=== PATIENT | male | born 1970 | race Caucasian/White ===

== ENCOUNTER 2023-02-15 08:51 | Outpatient (CLI) | payer MEDICARE, MEDICAID, SELFPAY ==
--- NOTE | 2023-02-15 11:30 | NEURO_ITS ---
Impression: # Complains of left upper extremity pain and nocturnal paresthesia of left hand. # Left moderate Carpal Tunnel Syndrome. # No ulnar neuropathy. # Normal needle/EMG. # Clinical correlation recommended. Nerve Conduction Studies Anti Sensory Summary Table Stim Site NR Peak (ms) P-T Amp (?V) Site1 Site2 Delta-P (ms) Dist (cm) Joseph (m/s) Left Median Anti Sensory (2-3nd Digit) Wrist 4.8 21.7 Wrist 2-3nd Digit 4.8 14.0 29 Wrist 4.4 17.0 Wrist 2-3nd Digit 4.8 14.0 29 Right Median Anti Sensory (2-3nd Digit) Wrist 3.1 47.8 Wrist 2-3nd Digit 3.1 14.0 45 Wrist 3.3 44.9 Wrist 2-3nd Digit 3.1 14.0 45 Left Radial Anti Sensory (Base 1st Digit) Wrist 2.2 21.9 Wrist Base 1st Digit 2.2 0.0 Right Radial Anti Sensory (Base 1st Digit) Wrist 2.3 29.4 Wrist Base 1st Digit 2.3 0.0 Left Ulnar Anti Sensory (5th Digit) Wrist 2.8 58.0 Wrist 5th Digit 2.8 14.0 50 Right Ulnar Anti Sensory (5th Digit) Wrist 2.7 33.2 Wrist 5th Digit 2.7 14.0 52 Motor Summary Table Stim Site NR Onset (ms) O-P Amp (mV) Site1 Site2 Delta-0 (ms) Dist (cm) Joseph (m/s) Left Median Motor (Abd Poll Brev) Wrist 5.1 1.6 Elbow Wrist 5.6 32.0 57 Elbow 10.7 1.8 Right Median Motor (Abd Poll Brev) Wrist 3.8 2.6 Elbow Wrist 6.1 32.0 52 Elbow 9.9 1.7 Left Ulnar Motor (Abd Dig Minimi) Wrist 2.8 6.0 A Elbow Wrist 5.3 32.0 60 A Elbow 8.1 5.4 Right Ulnar Motor (Abd Dig Minimi) Wrist 2.7 7.6 A Elbow Wrist 5.7 33.0 58 A Elbow 8.4 6.8 F Wave Studies NR F-Lat (ms) L-R F-Lat (ms) Left Median (Mrkrs) (Abd Poll Brev) 29.23 1.30 Right Median (Mrkrs) (Abd Poll Brev) 30.53 1.30 Left Ulnar (Mrkrs) (Abd Dig Min) 30.72 0.72 Right Ulnar (Mrkrs) (Abd Dig Min) 30.00 0.72 EMG Side Muscle Nerve Root Ins Act Fibs Amp Dur Recrt Comment Right 1stDorInt Ulnar C8-T1 Nml Nml Nml Nml Nml Right Ext Indicis Radial (Post Int) C7-8 Nml Nml Nml Nml Nml Right Ext Digitorum Radial (Post Int) C7-8 Nml Nml Nml Nml Nml Right BrachioRad Radial C5-6 Nml Nml Nml Nml Nml Right PronatorTeres Median C6-7 Nml Nml Nml Nml Nml Right Abd Poll Brev Median C8-T1 Nml Nml Nml Nml Nml Left 1stDorInt Ulnar C8-T1 Nml Nml Nml Nml Nml Left Ext Indicis Radial (Post Int) C7-8 Nml Nml Nml Nml Nml Left Ext Digitorum Radial (Post Int) C7-8 Nml Nml Nml Nml Nml Left BrachioRad Radial C5-6 Nml Nml Nml Nml Nml Left PronatorTeres Median C6-7 Nml Nml Nml Nml Nml Left Abd Poll Brev Median C8-T1 Nml Nml Nml Nml Nml MTDD
== END 2023-02-15 08:52 | disposition home or self-care (01) ==
LOC: ANHNEURO 08:54
PROVIDERS: PCP Family Medicine; Visit Provider Family Medicine
DX: R20.0 Anesthesia of skin (principal); G56.02 Carpal tunnel syndrome, left upper limb
CPT/HCPCS: 95886; 95911

== ENCOUNTER 2023-03-01 14:08 | Outpatient (CLI) | payer MEDICARE, MEDICAID, SELFPAY ==
--- NOTE | ~2023-03-01 | US_ITS ---
EXAMINATION:US venous doppler LE BI INDICATION:Leg pain TECHNIQUE: Multiple grayscale, color flow and Doppler images of the right and left lower extremity de ep venous systems were obtained and reviewed. COMPARISON:No prior studies for comparison. FINDINGS: The common femoral, superficial femoral and popliteal veins demonstrate normal respiratory variation, augmentation and compressibility. Color flow is also seen within the posterior tibial, pe roneal, greater saphenous and profunda veins. IMPRESSION: 1: No lower extremity deep venous thrombosis. Reviewed, dictated and finalized at location A.
== END 2023-03-01 14:09 | disposition home or self-care (01) ==
PROVIDERS: PCP Family Medicine; Visit Provider Physician Assistant
DX: M79.89 Other specified soft tissue disorders (principal); M79.605 Pain in left leg; M79.604 Pain in right leg
CPT/HCPCS: 93970

== ENCOUNTER 2024-01-20 11:23 | Outpatient (CLI) | payer MEDICARE, SELFPAY ==
--- NOTE | ~2024-01-20 | XR_ITS ---
[id number] Ordering provider: Evaristo Pozo MD History: . M54.12 - Radiculopathy, cervical region, NO RECENT INJURIES . Comparison: October 19, 2014 FINDINGS: VERTEBRAL BODIES: Normal height and alignment. No visible fracture or subluxation. The dens is intact . DISK SPACES: Degenerative disc disease with narrowing of the liver of C5-C6. Multilevel uncovertebral joint osteoarthritic changes. PARASPINOUS SOFT TISSUES: No prevertebral soft tissue swelling. IMPRESSION: No acute osseous abnormality cervical spine. Degenerative disc disease at the level of C5-C6. Reviewed, dictated and finalized at location A.
== END 2024-01-20 11:24 | disposition home or self-care (01) ==
LOC: ANHIMG 11:26
PROVIDERS: PCP Family Medicine; Visit Provider Family Medicine
DX: M54.12 Radiculopathy, cervical region (principal); M50.30 Other cervical disc degeneration, unspecified cervical region
CPT/HCPCS: 72040

== ENCOUNTER 2024-01-25 00:17 | Day surgery (SDC) | payer MEDICARE, MEDICAID, SELFPAY ==
[2024-01-11 14:53] VITALS: BMI 27.7
[2024-01-25 08:55] VITALS: BP 157/75; PULSE 80; RESP 20; TEMP 36.1; O2SAT 100; BMI 26.9
[2024-01-25] MEDS: LACTATED RINGERS 1,000 ML 150 ML IV CONT (09:07)
--- NOTE | 2024-01-25 09:32 | WPDANESEPPF ---
Anes - Initial Pre Proc Eval Procedure: Operation Date: 01/25/24 10:00 Proposed Procedures p Esophagogastroduodenoscopy&Screen Colon - James Jordan MD Date/Time: 01/25/24 09:32 Surgeon: James Jordan MD Pre Op Diagnosis: GERD, Neoplasm screening Patient Data Age: 53 Gender: M Height: 1.85 m Weight: 92.7 kg Last Vital Signs Temp 96.9 F L 01/25/24 08:55 Pulse 80 01/25/24 08:55 Resp 20 01/25/24 08:55 BP 157/75 H 01/25/24 08:55 Pulse Ox 100 01/25/24 08:55 O2 Del Method Room Air 01/25/24 08:55 Allergies Allergy/AdvReac Type Severity Reaction Status Date / Time Iodinated Contrast Media Allergy Severe Anaphylaxis Verified 01/25/24 08:54 Contrast Media Allergy Severe Anaphylaxis Uncoded 01/25/24 08:54 Home Medications Medication Instructions Recorded Confirmed Type buspirone 10 mg tablet 10 mg PO TID #90 tabs 11/24/22 01/25/24 Rx gabapentin 300 mg capsule See Rx Instructions PO .COMPLEX 06/06/23 01/25/24 Rx #450 caps lorazepam 0.5 mg tablet (Ativan) 0.5 mg PO BID anxiety #60 tabs 08/17/23 01/25/24 Rx metoprolol succinate 50 mg 50 mg PO DAILY #90 tabs 10/07/23 01/25/24 Rx tablet,extended release 24 hr clonidine HCl 0.1 mg tablet 0.1 mg PO BID #60 tabs 11/07/23 01/25/24 Rx albuterol sulfate 90 mcg/actuation 1 inh inhalation Q4H PRN shortness 12/09/23 01/25/24 Rx aerosol inhaler of breath or wheezing #8.5 grams ibuprofen 800 mg tablet 800 mg PO BID 01/11/24 01/25/24 History omeprazole magnesium 20 mg 20 mg PO DAILY 01/11/24 01/25/24 History tablet,delayed release (Prilosec OTC) psyllium 1 tbsp PO DAILY 01/11/24 01/25/24 History prednisone 10 mg tablet See Rx Instructions .Route 01/23/24 01/25/24 Rx .COMPLEX #18 tabs Patient hx anesthesia problems: none Family hx anesthesia problems: none Results Review: All pre-operative results and documents have been reviewed as part of the pre-operative evaluation. FOR[facility]LY [facility] Past Medical History Medical History Blockage of ear Chronic insomnia Foreign body of ear, right GERD (gastroesophageal reflux disease) HTN (hypertension) Peyronie disease Restless legs syndrome (RLS) Surgical History Surgical History History of lumbar surgery discectomy and fusion History of repair of ACL right Family History Family History Father Hypertension Family history of coronary artery disease Asthma Mother Hypertension Social History Social History Smoking packs per day: 3 Smoking cigarettes per day: 60.0 Years smoked: 32 Smoking pack-years: 96.00 Smoking status: Former smoker Tobacco type: cigarettes and e-cigarettes/vaping Smoking end date: 08/08/13 Additional smoking assessment comments: CURRENTLY VAPING SINCE 2013 A COUPLE TIMES A DAY Alcohol intake: never Substance use: current Substance use type: marijuana Other substance usage details: DAILY- Living arrangements: with family Occupation/Education: other Additional occupation/education comments: Disabled Gender identity (if verbalized by the patient): Male Sexual Orientation (if Verbalized by the Patient): Straight or Heterosexual Spiritual care concerns: No Anes - Eval Final PreProcedure Day of Procedure 01/25/24 09:32 Patient weight: overweight Heart: regular rate and rhythm Lungs: clear to auscultation Airway: Mallampati scale and special considerations (Bottom L tooth missing, top R broken. Upper incisor is a cap. ) Neurological: alert and oriented Last oral intake: >/= 8 hours ASA classification: III Emergent: no Anesthetic plan: proceed Anesthesia type and monitoring: general GIVS and standard monitoring Results Review: All pre-operative results and do
--- NOTE | 2024-01-25 09:45 | PM.HPGS ---
History of Present Illness History of Present Illness Consent: Risks, benefits, and alternatives have been discussed and questions answered. Patient agrees to proceed with procedure. Chief complaint: GERD, Neoplasm screening Narrative: Rober Carranza is a 53 year old male here with first egd and colonoscopy, reflux for years using omeprazole. Review of Systems Review of Systems: All systems reviewed & are unremarkable except as noted in HPI and below PMFSH Past Medical History Medical History (Updated 01/25/24 @ 09:46 by James Jordan MD) Blockage of ear Chronic insomnia Colon cancer screening Foreign body of ear, right GERD (gastroesophageal reflux disease) HTN (hypertension) Peyronie disease Restless legs syndrome (RLS) Surgical History Surgical History History of lumbar surgery discectomy and fusion History of repair of ACL right Family History Family History Father Hypertension Family history of coronary artery disease Asthma Mother Hypertension Social History Social History Smoking packs per day: 3 Smoking cigarettes per day: 60.0 Years smoked: 32 Smoking pack-years: 96.00 Smoking status: Former smoker Tobacco type: cigarettes and e-cigarettes/vaping Smoking end date: 08/08/13 Additional smoking assessment comments: CURRENTLY VAPING SINCE 2013 A COUPLE TIMES A DAY Alcohol intake: never Substance use: current Substance use type: marijuana Other substance usage details: DAILY- Living arrangements: with family Occupation/Education: other Additional occupation/education comments: Disabled Gender identity (if verbalized by the patient): Male Sexual Orientation (if Verbalized by the Patient): Straight or Heterosexual Spiritual care concerns: No Meds Home Medications and Allergies Home Medications Medication Instructions Recorded Confirmed Type buspirone 10 mg tablet 10 mg PO TID #90 tabs 11/24/22 01/25/24 Rx gabapentin 300 mg capsule See Rx Instructions PO .COMPLEX 06/06/23 01/25/24 Rx #450 caps lorazepam 0.5 mg tablet (Ativan) 0.5 mg PO BID anxiety #60 tabs 08/17/23 01/25/24 Rx metoprolol succinate 50 mg 50 mg PO DAILY #90 tabs 10/07/23 01/25/24 Rx tablet,extended release 24 hr clonidine HCl 0.1 mg tablet 0.1 mg PO BID #60 tabs 11/07/23 01/25/24 Rx albuterol sulfate 90 mcg/actuation 1 inh inhalation Q4H PRN shortness 12/09/23 01/25/24 Rx aerosol inhaler of breath or wheezing #8.5 grams ibuprofen 800 mg tablet 800 mg PO BID 01/11/24 01/25/24 History omeprazole magnesium 20 mg 20 mg PO DAILY 01/11/24 01/25/24 History tablet,delayed release (Prilosec OTC) psyllium 1 tbsp PO DAILY 01/11/24 01/25/24 History prednisone 10 mg tablet See Rx Instructions .Route 01/23/24 01/25/24 Rx .COMPLEX #18 tabs Allergies Allergy/AdvReac Type Severity Reaction Status Date / Time Iodinated Contrast Media Allergy Severe Anaphylaxis Verified 01/25/24 08:54 Contrast Media Allergy Severe Anaphylaxis Uncoded 01/25/24 08:54 Vital Signs Vital Signs - 24 hr 01/25/24 08:55 Temperature 96.9 F L Pulse Rate 80 Respiratory Rate 20 Blood Pressure 157/75 H Pulse Oximetry 100 Oxygen Delivery Room Air Exam Const: General: comfortable and no acute distress HENMT: Face/Nose/Sinus: Normal nares present Eyes: General: appearance normal, both eyes and all related structures Neck: Neck: no JVD Resp: Auscultation: clear to auscultation bilaterally Cardio: Rate: regular rate Rhythm: regular rhythm GI: Inspection: non-distended GI Palp: Yes Soft to palpation Skin: General skin exam: normal color Neuro: General: gait normal Speech: normal speech Extrem: General: normal to inspection Psych: Mental Status: mental status grossly normal Assessment
--- NOTE | 2024-01-25 10:01 | SUR.OPER ---
EGD: [id number] COLON: Start 954
[2024-01-25 10:08] VITALS: BP 108/52; PULSE 76; RESP 20; O2SAT 99
[2024-01-25 10:18] VITALS: BP 110/58; PULSE 76; RESP 20; O2SAT 99
[2024-01-25 10:28] VITALS: BP 139/80; PULSE 78; RESP 20; O2SAT 99
[2024-01-25 10:38] VITALS: BP 124/79; PULSE 82; RESP 16; O2SAT 99
== END 2024-01-25 10:43 | disposition home or self-care (01) ==
PROVIDERS: PCP Family Medicine; Visit Provider Internal Medicine Gastroenterology
PROC: 0DJ08ZZ Inspection of Upper Intestinal Tract, Via Natural or Artificial Opening Endoscopic (ICD-10-PCS; CPT 43235; principal; 2024-01-25 10:00)
DX: Z12.11 Encounter for screening for malignant neoplasm of colon (principal); D12.2 Benign neoplasm of ascending colon; K57.30 Diverticulosis of large intestine without perforation or abscess without bleeding; K64.8 Other hemorrhoids; K21.9 Gastro-esophageal reflux disease without esophagitis; Z79.51 Long term (current) use of inhaled steroids; I10 Essential (primary) hypertension; G25.81 Restless legs syndrome; Z98.1 Arthrodesis status; F17.290 Nicotine dependence, other tobacco product, uncomplicated; F12.90 Cannabis use, unspecified, uncomplicated
CPT/HCPCS: 45385; 43239; 88305; J2001; J2704; J7120

== ENCOUNTER 2024-01-30 10:15 | Outpatient (CLI) | payer MEDICARE, SELFPAY ==
--- NOTE | ~2024-01-30 | MR_ITS ---
EXAMINATION: MR lumbar spine wo con DATE: 01/30/2024 11:47 INDICATION: Radiculopathy TECHNIQUE: Magnetic resonance imaging (MRI) of the lumbar spine was performed without intravenous con trast. Sequences included sagittal T2-weighted FSE, sagittal T2-weighted FS FSE, sagittal T1-weighted FSE, and axial T2-weighted FSE. COMPARISON: 12/04/2013 FINDINGS: Postoperative changes of prior L3-L5 posterior spinal fusion with metallic magnetic field artifact as sociated with bilateral vertical chayito and pedicle screw fixation. There are also and bilateral L3-L4 l aminotomies. 15 degrees lumbar dextroscoliosis. 3 mm retrolisthesis L2 on L3 and 3 mm retrolisthesis L5 on S1. Severe left-sided disc height loss at L2-L3 with and right-sided disc height loss at L5-S1, both with associated degenerative endplate remodeling resulting in minimal associated vertebral body height loss at the sides of endplate remodeling. There is also fibrovascular degenerative endplate r emodeling at the sites of endplate remodeling. Remaining vertebral body heights and marrow signal are normal. Moderate disc height loss at L3-L4, mild to moderate right-sided predominant disc height los s at L4-L5 and mild right-sided disc height loss at L1-L2. The conus medullaris terminates at T12-L1. There is normal signal in the caudal spinal cord. There is fatty atrophy at the lower lumbar paraspi nal musculature extending caudally from the level of prior surgery. Paravertebral soft tissues are ot herwise unremarkable. The following disc levels are specifically discussed: T12-L1: The disc does not extend beyond the endplate margin. There is moderate bilateral facet joint osteoarthritis. There is no neural foraminal stenosis. There is no central canal stenosis. L1-L2: Disc is mildly bulging with superimposed right foraminal zone annular fissure and small disc e xtrusion. There is mild left-sided and moderate right-sided facet joint osteoarthritis. There is mild right neural foraminal stenosis. There is minimal central canal stenosis. L2-L3: Disc is bulging but does not extend beyond the more posterior L2 endplate margin. There is hyp ertrophy of the ligamentum flavum. There is mild left and moderate right facet joint osteoarthritis. There is moderate bilateral neural foraminal stenosis. There is severe central canal stenosis. L3-L4: The disc does not extend beyond the endplate margin. There is posterior spinal fusion. There i s mild right and minimal left neural foraminal stenosis. There is posterior decompression with no min tral canal stenosis. L4-L5: Disc is bulging. There is posterior spinal fusion. There is altered left and mild to moderate right neural foraminal stenosis. There is mild central canal stenosis. L5-S1: Disc is bulging with annular fissure. There is posterior spinal fusion. There is moderate left and moderate to severe right neural foraminal stenosis. There is minimal central canal stenosis. IMPRESSION: 1. L3-L5 instrumented posterior spinal fusion and bilateral L3-L4 hemilaminotomies. 2. Mild lumbar dextroscoliosis and severe spondylosis most notable for severe central canal stenosis at L2-L3 and moderate to severe neural foraminal stenosis on the right at L5-S1. Reviewed, dictated and finalized at location B. IMPRESSION: 1. L3-L5 instrumented posterior spinal fusion and bilateral L3-L4 hemilaminotom ies. 2. Mild lumbar dextroscoliosis and severe spondylosis most notable for severe c entral canal stenosis at L2-L3 and moderate to severe neural foraminal stenosis on the right at L5-S1.
--- NOTE | ~2024-01-30 | MR_ITS ---
EXAMINATION: MR cervical spine wo con DATE: 01/30/2024 11:47 INDICATION: Cervical radiculopathy. TECHNIQUE: Magnetic resonance imaging (MRI) of the cervical spine was performed without intravenous c ontrast. COMPARISON: CT cervical spine 10/19/2014 FINDINGS: Bone alignment is normal. Vertebral body heights are normal. There is a hemangioma in C6 ve rtebral body. There is mildly decreased disc height at C4-C5 and moderately decreased disc height at C5-C6. The spinal cord signal intensity is normal. The following disc levels are specifically discuss ed: C2-C3: The disc does not extend beyond the endplate margin. There is mild left uncovertebral joint os teoarthritis. There is mild right and severe left facet joint osteoarthritis. There is mild right and moderate left neural foraminal stenosis. There is no central canal stenosis. C3-C4: The disc does not extend beyond the endplate margin. There is mild bilateral uncovertebral yesica nt osteoarthritis. There is mild bilateral facet joint osteoarthritis. There is mild bilateral neural foraminal stenosis. There is no central canal stenosis. C4-C5: The disc is bulging. There is mild bilateral uncovertebral joint osteoarthritis. There is mild bilateral facet joint osteoarthritis. There is moderate right and mild left neural foraminal stenosi s. There is mild central canal stenosis. C5-C6: The disc is bulging. There is severe bilateral uncovertebral joint osteoarthritis. There is mo derate bilateral facet joint osteoarthritis. There is mild right and moderate left neural foraminal s tenosis. There is mild central canal stenosis. C6-C7: There is a central protrusion. There is mild bilateral uncovertebral joint osteoarthritis. The re is mild bilateral facet joint osteoarthritis. There is no neural foraminal stenosis. There is no c entral canal stenosis. C7-T1: There is a central protrusion. There is no uncovertebral joint osteoarthritis. There is modera te bilateral facet joint osteoarthritis. There is mild left neural foraminal stenosis. There is no ce ntral canal stenosis. IMPRESSION: 1. Moderate cervical spondylosis. Reviewed, dictated and finalized at location A.
== END 2024-01-30 10:16 ==
LOC: GOSHIMG 10:16
PROVIDERS: PCP Family Medicine; Visit Provider Family Medicine
DX: M43.02 Spondylolysis, cervical region (principal); M43.06 Spondylolysis, lumbar region; M41.86 Other forms of scoliosis, lumbar region; Z98.1 Arthrodesis status
CPT/HCPCS: 72141; 72148

== ENCOUNTER 2024-06-25 17:58 | Emergency (ER) | payer MEDICARE, MEDICAID, SELFPAY ==
[2024-06-25 18:14] VITALS: BP 138/87; PULSE 77; RESP 20; TEMP 36.6; O2SAT 99
--- NOTE | 2024-06-25 19:02 | ED_ITS ---
HPI - URI/Sore Throat General Chief Complaint: Upper Respiratory Infection Stated Complaint: Sinus Pain/Ear Pain/Chest Congestion Time Seen by Provider: 06/25/24 19:02 Source: patient, RN notes reviewed and old records reviewed Mode of arrival: ambulatory Limitations: no limitations History of Present Illness HPI Narrative: 53 year old male presents to express care with complaints of sinus congestion drainage with sinus pressure, chest congestion with some expectoration of yellow and green tinted phlegm for the past 4 days along with bilateral ear pain. Patient reports that he has not taken any OTC medications for his symptoms. Patient reports that he has history of sinus infections MD elicited complaint: cough, rhinorrhea, nasal congestion and sinus pain Pertinent past history: sinusitis, asthma and other (COVID in April) Onset (ago): day(s) (4) Severity: moderate Description of mucous: yellow and green Able to tolerate fluids by mouth: Yes Treatments prior to arrival: other (benzonatate) Related Data Home Medications Medication Instructions Recorded Confirmed omeprazole magnesium 20 mg 20 mg PO DAILY 01/11/24 06/25/24 tablet,delayed release (Prilosec OTC) psyllium 1 tbsp PO DAILY 01/11/24 02/22/24 Allergies Allergy/AdvReac Type Severity Reaction Status Date / Time Iodinated Contrast Media Allergy Severe Anaphylaxis Verified 02/27/24 14:55 Contrast Media Allergy Severe Anaphylaxis Uncoded 02/27/24 14:55 Review of Systems Review of Systems: CONSTITUTIONAL: Reports malaise, no chills, sweats, or fever. EYES: Denies visual changes, redness, or discharge. ENT: Reports rhinorrhea, congestion, sinus pain, otalgia and no sore throat. CARDIOVASCULAR: Denies chest pain, palpitations, or edema. RESPIRATORY: Reports cough.? Denies dyspnea, reports yellow and green tinged phlegm. GASTROINTESTINAL: Denies abdominal pain, nausea, vomiting, diarrhea SKIN: Denies rash or itching. MUSCULOSKELETAL: Denies myalgia. NEUROLOGIC: Reports frontal headache. All systems reviewed & are unremarkable except as noted in HPI and below PMFSH Past Medical History Medical History Blockage of ear Chronic insomnia Colon cancer screening Foreign body of ear, right GERD (gastroesophageal reflux disease) HTN (hypertension) Peyronie disease Restless legs syndrome (RLS) Surgical History Surgical History History of lumbar surgery discectomy and fusion History of repair of ACL right Family History Family History Father Hypertension Family history of coronary artery disease Asthma Mother Hypertension Social History Social History Smoking packs per day: 3 Smoking cigarettes per day: 60.0 Years smoked: 32 Smoking pack-years: 96.00 Smoking status: Former smoker Tobacco type: cigarettes and e-cigarettes/vaping Smoking end date: 08/08/13 Additional smoking assessment comments: CURRENTLY VAPING SINCE 2013 A COUPLE TIMES A DAY Alcohol intake: never Substance use: current Substance use type: marijuana Other substance usage details: DAILY- Do You Feel Safe in your Home?: Yes Lack of Transportation: No Lack of Food: Never True Current Housing: I Have Housing Concerned About Future Housing: No Difficulty Paying Gas/Electric Bills: No Difficulty Paying for Meds: No Currently Unemployed: No Education: High School Diploma/GED Difficulty w/ Childcare or Family Care: No Living arrangements: with family Occupation/Education: other Additional occupation/education comments: Disabled Gender identity (if verbalized by the patient): Male Sexual Orientation (if Verbalized by the Patient): Straight or Heterosexual Spiritual care concerns: No Comments At time of signature, agree with nursing past medical, surgical, social and family history. There is no relevant family history pertinent to the presenting complaint Exam Narrative: GENERAL: Well-appearing, well-nourished, and in no acute distress. HEAD: Normocephalic EYES: PERRLA, conjunctivae clear ENT: Nares clear, turbinates edematous and erythematous, yellow discharge sinus pressure and frontal headache. Mucous membranes moist. TM pearly jean baptiste with dull light reflex bilaterally; no tragal tenderness. Oropharynx erythematous without lesions. Tonsils not enlarged and without exudate, no drooling, no hoarseness, no trismus, uvula midline.post nasal drainage NECK: Supple. No lymphadenopathy CHEST: Clear to auscultation, breath sounds equal. No wheezing, rhonchi, rales, or stridor. No respiratory distress, speaks in full sentences.cough noted SA)299% on rom air HEART: Regular rate and rhythm. No murmur heard. SKIN: Warm, dry, no rash. NEURO: Alert and oriented x3. PSYCH: Normal mood and affect Course Course Emergency Course: Patient is aware of diagnosis, understands and agrees to treatment plan.? Anticipatory guidance given.? Patient agrees to follow-up as directed and is aware of reasons to seek care at the emergency department. Portions of this record may have been created with voice recognition software Level of Care: Express Care Visit Vital Signs Vital signs: Vital Signs Temperature 36.6 C 06/25/24 18:14 Pulse Rate 77 06/25/24 18:14 Respiratory Rate 20 06/25/24 18:14 Blood Pressure 138/87 06/25/24 18:14 Pulse Oximetry 99 06/25/24 18:14 Oxygen Delivery Room Air 06/25/24 18:14 Temperature 36.6 C 06/25/24 18:14 Pulse Rate 77 06/25/24 18:14 Respiratory Rate 20 06/25/24 18:14 Blood Pressure 138/87 06/25/24 18:14 Pulse Oximetry 99 06/25/24 18:14 Oxygen Delivery Room Air 06/25/24 18:14 Reviewed MDM - URI/Sore Throat MDM Narrative Medical decision making narrative: Differential diagnosis considered: Álvarez virus, strep pharyngitis, allergic rhinitis, upper respiratory tract infection, sinusitis, rhinosinusitis, nasopharyngitis. viral pharyngitis, otitis media, otitis externa, pneumonia, bronchitis, viral cough syndrome, viral syndrome, and influenza.? Exam findings show no acute concerns or changes; patient is non-toxic appearing and is in no distress.? Patient is appropriate for outpatient treatment and follow-up. Differential Diagnosis Differential diagnosis: Likely upper respiratory infection Medical Records Attestation: I reviewed the patient's medical records. Lab Data Attestation: I reviewed the patient's lab results. Critical Care Time Critical Care Time Critical Care Time: No Discharge Plan Discharge Clinical Impression: URI (upper respiratory infection) Patient Disposition: Home, Self-Care Condition: Stable Instructions: Antibiotic Form, Upper Respiratory Infection (ED), Acute Cough (ED) Additional Instructions: Increase fluids especially juices and water [id number] cough and cold medicine of your choice for your symptoms Zyrtec Claritin or Ilsa daily include Coricidin decongestant Continue your inhaler/nebulizer as directed Steroids as directed--take with food heat to the face 20-30 minutes 4-6 times a day for pain Salt water gargles, throat lozenges or throat sprays as desired Antibiotic as directed--finished the medication If your symptoms persist, change or worsen significantly before you can contact your personal physician then please, without delay, go to the emergency department for further evaluation. Follow-up with PCP in 7-10 days or sooner if needed Follow up with PCP soon in regards to your blood pressure which is elevated above threshold for referral. Blood pressure above 120/80 may indicate pre- hypertension. 138/87 Prescriptions: New amoxicillin-pot clavulanate 875-125 mg tablet 1 tablet PO Q12H Qty: 20 0RF methylprednisolone [Medrol (Raji)] 4 mg tablets,dose pack See Rx Instructions .ROUTE .COMPLEX Qty: 21 0RF Rx Instructions: orally per package directions No Action buspirone 10 mg tablet 10 mg PO TID Qty: 90 5RF Metamucil Sugar Free Powder 1 tbsp PO DAILY Rx Instructions: mix into at least 8 oz of water or juice before administering omeprazole magnesium [Prilosec OTC] 20 mg Tablet,Delayed Release (Dr/Ec) 20 mg PO DAILY gabapentin 300 mg capsule See Rx Instructions PO .COMPLEX Qty: 450 1RF Rx Instructions: Take 600 mg morning and afternoon and 300 mg at night orally; metoprolol succinate 50 mg tablet extended release 24 hr 50 mg PO DAILY Qty: 90 1RF lorazepam [Ativan] 0.5 mg tablet 0.5 mg PO BID Qty: 60 0RF albuterol sulfate 90 mcg/actuation HFA aerosol inhaler 1 inh inhalation Q4H PRN (Reason: shortness of breath or wheezing) Qty: 8.5 3RF benzonatate 100 mg capsule 100 - 200 mg PO TID PRN (Reason: cough) Qty: 60 0RF Rx Instructions: Take 1 to 2 caps (100 to 200 mg) TID prn for cough. Max 600 mg/day clonidine HCl 0.1 mg tablet 0.1 mg PO BID Qty: 60 5RF Follow-up/Referrals: Evaristo Pozo MD [Primary Care Provider] - Time of Disposition: 19:16 Quality Natalia Coma Scale Eyes: Open Verbal: Oriented and Alert Motor: Follows Commands Natalia Coma Total Score: 15
== END 2024-06-25 19:19 | disposition home or self-care (01) ==
PROVIDERS: Emergency Provider Registered Nurse; PCP Family Medicine
DX: J06.9 Acute upper respiratory infection, unspecified (principal); F17.290 Nicotine dependence, other tobacco product, uncomplicated; I10 Essential (primary) hypertension; K21.9 Gastro-esophageal reflux disease without esophagitis; G25.81 Restless legs syndrome; N48.6 Induration penis plastica
CPT/HCPCS: 99213; G0463

== ENCOUNTER 2024-08-27 11:46 | Outpatient (CLI) | payer MEDICARE, MEDICAID, SELFPAY ==
--- NOTE | ~2024-08-27 | XR_ITS ---
Clinical Indication: Cough PA and lateral views of the chest: Comparison: 04/30/2009 Findings: The lungs are clear, without evidence of focal consolidation or pleural effusion. Cardiome diastinal silhouette is within normal limits. Bones and soft tissues are unremarkable. Impression: Normal chest. Reviewed, dictated and finalized at [facility]. ESS SAFETY ENGINEER Impression: Normal chest.
== END 2024-08-27 11:47 | disposition home or self-care (01) ==
PROVIDERS: PCP Family Medicine; Visit Provider Family Medicine
DX: R05.9 Cough, unspecified (principal)
CPT/HCPCS: 71046

== ENCOUNTER 2024-09-06 10:04 | Outpatient (CLI) | payer MEDICARE, MEDICAID, SELFPAY ==
--- OUTSIDE RECORDS SUMMARY | 2024-09-06 10:49 | XMS_ITS | Clinical Summary ---
Author Organization [facility] Address [address] [place] [address] Care Team Providers Care Pilates Coordinator Name Role Phone Familia New MD Primary Care Provider [phone] Allergies Active Allergy Reactions Criticality Noted Date Comments Iodinated Contrast Media Hives Medium 04/21/2018 Metrizamide Other (See comments) High 06/28/2012 Other Other (See comments) Low 02/06/2014 Medications cyclobenzaprin e (FLEXERIL) 10 mg tabletIndicati ons:Muscle Spasm Take 1 tablet (10 mg total) by mouth 2 (two) times a day as needed for muscle spasms. 20 tablet 8 Active albuterol sulfate 90 mcg/actuation aerosol powdr breath activated Active VENTOLIN HFA 90 mcg/actuation inhaler 8 Active ALPRAZolam (XANAX) 0.5 mg tablet 0 8 Active ALPRAZolam (XANAX) 1 mg tablet Active busPIRone (BUSPAR) 7.5 mg tabletIndicati ons:Generalize d Anxiety Disorder 8 Active cloNIDine (CATAPRES) 0.1 mg tablet [address] (NexIUM) 40 mg capsule Active FLOVENT HFA 220 mcg/actuation inhaler 8 Active gabapentin (NEURONTIN) 300 mg capsule 8 Active ibuprofen (ADVIL,MOTRIN) 800 mg tablet 8 Active metoprolol XL (TOPROL-XL) 50 mg 24 hr tablet 8 Active montelukast (SINGULAIR) 10 mg tablet 09/27/201 8 Active piroxicam (FELDENE) 20 mg capsule 20 mg. 2 Active diazePAM (VALIUM) 2 mg tablet Take 1 tablet (2 mg total) by mouth every 6 (six) hours as needed (Take as directed to relax muscles) Collaborating physician Jame Bryant MD 15 tablet 3 Active ketorolac (TORADOL) 10 mg tablet Take 1 tablet (10 mg total) by mouth every 6 (six) hours as needed for pain Collaborating physician Jame Bryant MD 20 tablet 3 Active Active Problems Problem Noted Date Diagnosed Date COVID-19 virus infection 10/25/2022 Dehydration, mild 10/25/2022 Surgical History Surgery Date Site/Laterality Comments BACK SURGERY KNEE SURGERY Medical History Medical History Date Comments Hypertension Peripheral neuropathy Asthma Gastric reflux Anxiety Family History Medical History Relation Name Comments Hypertension Father Family history of hypertension - (Added by TW Conv) Diabetes Maternal Grandfather Family history of diabetes mellitus - (Added by TW Conv) Hypertension Mother Family history of hypertension - (Added by TW Conv) Arthritis Other Cancer Other Heart disease Other Kidney disease Other Diabetes Paternal Grandfather Family history of diabetes mellitus - (Added by TW Conv) Relation Name Status Comments Father Maternal Grandfather Mother Other Paternal Grandfather Social History Tobacco Use Types Packs/Day Years Used Date Smoking Tobacco: Every Day Smokeless Tobacco: Current Tobacco Cessation:Ready to Q uit: Not Asked; Counseling Given: Not Answered Comments:vape Alcohol Use Standard Drinks/Week Comments No 0 (1 standard drink = 0.6 oz pur e alcohol) Personal Safety Answer Date Recorded Getting School Help Needed Not on file 11/13 Sex and Gender Information Value Date Recorded Sex Assigned at Not on file Legal Sex Male 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 MIXER Gender Identity Not on file Sexual Orientation Not on file Obstetrics History Last Filed Vital Signs Vital Sign Reading Time Taken Comments Blood Pressure 147/87 10/25/2022 6:02 PM CDT Pulse 75 10/25/2022 6:02 PM CDT Temperature 36.7 ??C (98.1 ??F) 10/25/2022 6:02 PM CD T Respiratory Rate 18 10/25/2022 6:02 PM CDT Oxygen Saturation 99% 10/25/2022 6:02 PM CDT Inhaled Oxygen Concentration - - Weight 90.7 kg (200 lb) 10/25/2022 6:02 PM CDT Height 185.4 cm (6' 1 ) 10/25/2022 6:02 PM CDT Body Mass Index 26.39 10/25/2022 6:02 PM CDT Plan of Treatment Health Maintenance Due Date Last Done Comments Colon Cancer Screening-Colonoscopy 1968 Depression Screening 1968 Hepatitis C Screening 1968 Prostate Cancer Screening-PSA 1968 Pneumococcal vaccine <65 (1 of 2 - PCV) 1974 DTaP/Tdap/Td Vaccine (1 - Tdap) 1979 Hepatitis B Screening 1986 Regular Well Visit/Exam 18-64 1986 Zoster Vaccine (1 of 2) 2018 Covid-19 Vaccine ( season) 2024, 03/14/2021 Influenza Vaccine (#1) 2024 07/08/2022, 2019 Insurance [employer] MEDIC[employer] SOLUTIONS MEDICARE [facility] MEDICARE [facility] Care Teams Pilates Coordinator Relationship Specialty Start Date End Date Familia New MD [address] [place] [address] PCP - General 04/09/20
--- OUTSIDE RECORDS SUMMARY | 2024-09-06 10:49 | XMS_ITS | Clinical Summary ---
Author Organization [facility] Address [address] [place] [address] Care Team Providers Care Ball Sorter Name Role Phone Charles Saleem MD Unavailable [phone] Vivi Holm Primary Care Provider [phone] Source Comments [facility],non-owned Affiliates and Associated Physician Practices is amultiple site organization consisting of ambulatory clinics and hospital sitesin [place], [place], [place] and [place]. This disclosure is being madepursuant to the Care Everywhere program and may not contain all information available regarding this patient. Last updated 18.[facility] Allergies Active Allergy Reactions Criticality Noted Date Comments Contrast-Iodinated Agents For Ct/Other High 06/28/2012 Medications * Be aware that medications may not be up to date on this document. Alwaysverify current medications with the patient. Medication Sig Dispensed Refills Start Date End Date Status esomeprazole (NEXIUM) 40 MG capsule Active ALPRAZolam (XANAX) 1 MG tablet Active metoprolol succinate XL 24hr (TOPROL XL) 50 MG tablet Active ALBUTEROL IN Active piroxicam (FELDENE) 20 MG capsule 1 Cap once daily. 30 Cap 3 06/28/2012 Active Active Problems Problem Noted Date Diagnosed Date Lumbago 07/03/2012 Degeneration of lumbar or lumbosacral interverte bral disc 07/03/2012 Social History Tobacco Use Types Packs/Day Years Used Date Smoking Tobacco: Every Day Alcohol Use Standard Drinks/Week Comments No 0 (1 standard drink = 0.6 oz pur e alcohol) Sex and Gender Information Value Date Recorded Sex Assigned at Not on file Gender Identity Not on file Sexual Orientation Not on file Last Filed Vital Signs Vital Sign Reading Time Taken Comments Blood Pressure 124/82 06/28/2012 11:05 AM DEPUTY EDITOR IN CHIEF Pulse 68 06/28/2012 11:05 AM DEPUTY EDITOR IN CHIEF Temperature - - Respiratory Rate - - Oxygen Saturation - - Inhaled Oxygen Concentration - - Weight 124.7 kg (275 lb) 06/28/2012 11:05 AM DEPUTY EDITOR IN CHIEF Height 188 cm (6' 2 ) 06/28/2012 11:05 AM DEPUTY EDITOR IN CHIEF Body Mass Index 35.31 06/28/2012 11:05 AM DEPUTY EDITOR IN CHIEF Plan of Treatment Health Maintenance Due Date Last Done Comments COLOGUARD (AGES 45-75) - COL ON CA SCREENING 1968 COLON MONITORING 1968 COLONOSCOPY - COLON CA SCREENING 1968 CT COLONOGRAPHY - COLON CA SCREENING 1968 Colorectal Cancer Screening 1968 FIT - COLON CA SCREENING 1968 FLEX SIG - COLON CA SCREENING 1968 LIPID TESTING 1968 MEDICARE AWV ? 12 MONTHS 1968 HIV SCREENING 1983 HEPATITIS C SCREENING 09/11/1986 DTAP/TDAP/TD VACCINES (1 - Tdap) 1987 HEPATITIS B VACCINE (1 of 3 - 19+ 3-dose series) 1987 PNEUMOCOCCAL VACCINE 50+ (1 of 2 - PCV) 1987 PNEUMOCOCCAL VACCINE (1 of 2 - PCV) 1987 ZOSTER VACCINE (1 of 2) 2018 COVID-19 VACCINE ( - 2023-2 5 season) 2024 INFLUENZA VACCINE (#1) 2024 DEPRESSION SCREENING 08/08/2024 MEDICARE AWV ? CALENDAR YEAR 2024 HIB VACCINE Aged Out No longer eligi ble based on patient's age to complete this topic HPV VACCINE Aged Out No longer eligi ble based on patient's age to complete this topic MENINGOCOCCAL (Group B) VACCINE Aged Out No longer eligible based on patient's age to complete this topic MENINGOCOCCAL VACCINE Aged Out No mark anthony sunni eligible based on patient's age to complete this topic Insurance Payer Benefit Plan / Group Subscriber ID Effective Dates Phone Address Type [facility] MANAGED MEDICARE ADV [facility] MEDICARE ADV [id number] Effective for all dates [phone] [address] [place] [address] Medicare-Man aged Care MEDICARE MEDICARE PART A AND B [id number] Effective for all dates [phone] [address] [place] [address] [place] Effective for all dates [address] [address] [place] [address] Medicaid [facility] MANAGED MEDICARE ADV [facility] MEDICARE ADV [id number] Effective for all dates [address] [address] [place] [address] Medicare-Man aged Care [place] Effective for all dates [address] [address] [place] [address] Medicaid [facility] MANAGED MEDICARE ADV [facility] MEDICARE ADV [id number] Effective for all dates [address] [address] [place] [address] Medicare-Man aged Care [place] Effective for all dates [address] [address] [place] [address] Medicaid [place] MEDICARE WPS MEDICARE PART B [id number] 11/06/2008-Pres ent [address] [address] [place] [address] Medicare MEDICAID - OUT OF STATE MEDICAID - [place] PUBLIC A[place] [id number] Effective for all dates [address] [address] [place] [address] Medicaid MEDICARE MEDICARE OP W/PART B ONLY [id number] 11/06/2008-Pres ent [address] [address] [place] [address] Medicare [place] [id number] 06/08/2012-Pre sent [address] [address] [place] [address] Medicaid [place] Care Teams Ball Sorter Relationship Specialty Start Date End Date Vivi Holm PA [address] [place] [address] PCP - General 05/02/18 Charles Saleem MD Neurological Surgery 06/28/12
--- OUTSIDE RECORDS SUMMARY | 2024-09-06 10:49 | XMS_ITS | Referral Summary ---
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
--- OUTSIDE RECORDS SUMMARY | 2024-09-06 10:50 | XMS_ITS | Referral Summary ---
Author Organization [facility] Address [address] [place] [address] Care Team Providers Care Clinical Associate Name Role Phone Charles Saleem MD Unavailable [phone] Vivi Holm Primary Care Provider [phone] Source Comments [facility],non-owned Affiliates and Associated Physician Practices is amultiple site organization consisting of ambulatory clinics and hospital sitesin [place], [place], [place] and [place]. This disclosure is being madepursuant to the Care Everywhere program and may not contain all information available regarding this patient. Last updated 18.[facility] Allergies Active Allergy Reactions Criticality Noted Date [...] Comments Blood Pressure 124/82 06/28/2012 11:05 AM SERVICE CLERK Pulse 68 06/28/2012 11:05 AM SERVICE CLERK Temperature - - Respiratory Rate - - Oxygen Saturation - - Inhaled Oxygen Concentration - - Weight 124.7 kg (275 lb) 06/28/2012 11:05 AM SERVICE CLERK Height 188 cm (6' 2 ) 06/28/2012 11:05 AM SERVICE CLERK Body Mass Index 35.31 06/28/2012 11:05 AM SERVICE CLERK Plan of Treatment Not on file Care Teams Clinical Associate Relationship Specialty Start Date End Date Vivi Holm PA [address] [place] [address] PCP - General 05/02/18 Charles Saleem MD Neurological Surgery 06/28/12
--- OUTSIDE RECORDS SUMMARY | 2024-09-06 10:50 | XMS_ITS | Patient Health Summary ---
Author Organization [facility] Address [address] [place] [address] Care Team Providers Care Infection Control Rn Name Role Phone Charles Saleem MD Unavailable [phone] Vivi Holm Primary Care Provider [phone] Note from [facility],non-owned Affiliates and Associated Physician Practices is amultiple site organization consisting of ambulatory clinics and hospital sitesin [place], [place], [place] and [place]. This disclosure is being madepursuant to the Care Everywhere program and may not contain all information available regarding this patient. Last updated 18.[facility] Allergies * Contrast-Iodinated Agents For Ct/Other-High Criticality Medications * Be aware that medications may not be up to date on this document. Alwaysverify current medications with the patient. * esomeprazole (NEXIUM) 40 MG capsule * ALPRAZolam (XANAX) 1 MG tablet * metoprolol succinate XL 24hr (TOPROL XL) 50 MG tablet * ALBUTEROL IN * piroxicam (FELDENE) 20 MG capsule(Started 06/28/2012) 1 Cap once daily. 3 refills left Active Problems Problem Noted Date Diagnosed Date [...] Comments Blood Pressure 124/82 06/28/2012 11:05 AM LEAD SOFTWARE QA ENGINEER Pulse 68 06/28/2012 11:05 AM LEAD SOFTWARE QA ENGINEER Temperature - - Respiratory Rate - - Oxygen Saturation - - Inhaled Oxygen Concentration - - Weight 124.7 kg (275 lb) 06/28/2012 11:05 AM LEAD SOFTWARE QA ENGINEER Height 188 cm (6' 2 ) 06/28/2012 11:05 AM LEAD SOFTWARE QA ENGINEER Body Mass Index 35.31 06/28/2012 11:05 AM LEAD SOFTWARE QA ENGINEER Procedures * CT LUMBAR SPINE WO CONTRAST(Performed 05/26/2012) * CT THORACIC SPINE WO CONTRAST(Performed 05/26/2012) Results * CT LUMBAR SPINE NON CONTRAST (05/26/2012) Anatomical Region Laterality Modality Spine Other Charles Saleem MD CT ORDERABLES * CT THORACIC SPINE NON CONTRAST (05/26/2012) Anatomical Region Laterality Modality Spine Other Charles Saleem MD CT ORDERABLES Care Teams Infection Control Rn Relationship Specialty Start Date End Date Vivi Holm PA [address] [place] [phone] PCP - General 05/02/18 Charles Saleem MD Neurological Surgery 06/28/12
--- NOTE | 2024-09-07 07:19 | WPDPFTINT ---
PFT Procedure Performed PFT Procedure Performed Spirometry with Pre/Post Bronchodilator Plethysmography (Lung Vol) Diffusing Cap (DLCO) Flow Vol Loop PFT Interpretation This is a pulmonary function test with pre and post-bronchodilator spirometry, plethysmography and diffusing capacity. The test was performed and results interpreted in accordance with the 2019 and 2005 ATS/ERS Task Force guidelines respectively using the Global Lung Function Initiative-2012 reference equations. Patient demonstrated good effort and cooperation. Reproducibility criteria were met. The quality of the pre bronchodilator spirometry maneuver was Grade A and post bronchodilator spirometry maneuver was Grade A. Findings: Spirometry: There is mid expiratory pause or knee pattern and all 3 of the pre bronchodilator efforts that is more pronounced in all 3 of the post bronchodilator efforts. The contour the inspiratory flow tracing is normal. The pre bronchodilator FVC is 5.48 L, 106% predicted. The pre bronchodilator FEV1 is 4.18 L, 104% predicted. The pre bronchodilator FEV1: FVC ratio 76%. The post bronchodilator FVC is 5.48 L, representing no change. The post bronchodilator FEV1 is 4.25 L, representing a 2% increase. The post bronchodilator FEV1: FVC ratio 78%. Plethysmography: The total lung capacity is 8.07 L, 109% predicted. The functional residual capacity is 4.58 L, 119% predicted. The residual volume is 2.53 L, 112% predicted. Diffusing capacity: The diffusing capacity unadjusted for hemoglobin and carboxyhemoglobin is 25.6, 84% predicted. The diffusing capacity adjusted for alveolar volume is 3.31, 77% predicted. Impression: There is a reproducible knee pattern of the expiratory flow tracing which can be a normal variant or pathologic and has been attributed to a choke point section of the bronchial tree. The normal variant is more common in younger female patients, decreases with age and is more pronounced in the post bronchodilator efforts. The pattern has also been described with kyphosis, kyphoscoliosis, central obstructing mass, and post lung transplantation. Clinical correlation recommended. Otherwise, the spirometry is normal without evidence of an obstructive abnormality. There is no significant improvement after inhaling a single dose of albuterol. The lung volumes are normal. The diffusing capacity is normal. There are no prior studies for comparison
== END 2024-09-06 10:05 | disposition home or self-care (01) ==
LOC: ANHPFT 10:05
PROVIDERS: PCP Family Medicine; Visit Provider Family Medicine
DX: R05.9 Cough, unspecified (principal); F17.200 Nicotine dependence, unspecified, uncomplicated
CPT/HCPCS: 94060; 94726; 94729